=== PATIENT | male | born 1985 | race Hispanic/Latino ===

== ENCOUNTER 2018-04-16 10:33 | Emergency (ER) | payer OTHER ==
[2018-04-16] MEDS ORDERED: KETOROLAC 30 MG/ML INJ ONE (11:42)
[2018-04-16 11:56] LABS: Absolute Lymphocytes (CBC) 1.8 K/uL (0.7-4.9); Absolute Monocytes 0.4 K/uL (0.1-1.3); Absolute Neutrophil 2.9 K/uL (1.8-8.0); Basophils % 0.5 % (0-1.3); Eosinophils % 1.2 % (0-4.4); Hematocrit 45.4 % (39.6-49.0); Lymphocytes % 34.1 % (15.3-44.8); MPV 10.7 fL (7.6-11.3); Monocytes % 7.9 % (3.3-12.3); RBC Red Blood Cell Count 5.36 M/uL (4.33-5.43)
--- NOTE | 2018-04-16 12:07 | RAD REPORT ---
EXAM DESCRIPTION: RAD - Chest Pa And Lat (2 Views) - 04/16/2018 11:59 am CLINICAL HISTORY: CHEST PAIN Chest pain. COMPARISON: No comparisons FINDINGS: The lungs are clear. The heart is normal in size. No displaced fractures. Prominent kyphos is with bony fusion seen at the thoracolumbar junction.
[2018-04-16 12:15] LABS: BUN Blood Urea Nitrogen 12 mg/dL (7-18); Bicarbonate 29 mmol/L (21-32); Glucose Level 102 mg/dL (74-106); Potassium 3.9 mmol/L (3.5-5.1); Sodium Level 137 mmol/L (136-145); Troponin (Emerg Dept Use Only) < 0.02 ng/mL (0.0-0.045)
[2018-04-16] MEDS ORDERED: HYDROCODONE/APAP 5/325 MG TAB ONE (12:46)
--- NOTE | 2018-04-16 13:11 | RAD REPORT ---
EXAM DESCRIPTION: CTSpine Lumbar Wo Con04/16/2018 12:58 pm CLINICAL HISTORY: Back pain. Radiculopathy COMPARISON: None TECHNIQUE: Computed axial tomography lumbar spine was obtained with coronal and sagittal reconstruct ion. All CT scans are performed using dose optimization technique as appropriate and may include automated exposure control or mA/KV adjustment according to patient size. FINDINGS: No fracture is seen. No dislocation is noted. A significant bulging/disc herniation is not seen. Facet hypertrophy L4-5 and L5-S1 results in mild narrowing results in mild narrowing of the left neur al foramina IMPRESSION: Negative for a lumbar fracture. Significant spinal stenosis is not seen. If patient continues have symptoms to suggest spinal canal pathology MRI would be recommended
--- NOTE | 2018-04-16 13:16 | RAD REPORT ---
EXAM DESCRIPTION: CTThoracic Spine W/o Cont04/16/2018 12:59 pm CLINICAL HISTORY: Back pain. Radiculopathy COMPARISON: None TECHNIQUE: Computed axial tomography of thoracic spine was obtained with coronal and sagittal recons truction. All CT scans are performed using dose optimization technique as appropriate and may include automated exposure control or mA/KV adjustment according to patient size. FINDINGS: No fracture is seen. No dislocation is noted. Anterior fusion involves T9 through L1 with focal kyphosis. An obvious large disc bulge/herniation is not seen. 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
--- NOTE | 2018-04-16 13:51 | ER ---
Nurse's Notes [facility] Name: Ed Bal Age: 32 yrs Sex: Male : 1985 Arrival Date: 04/16/2018 Time: 10:44 Bed 17 Private MD: None, None Diagnosis: Kyphosis and lordosis;Fusion of spine, thoracolumbar region Presentation: 04/16 10:53 Presenting complaint: Patient states: "I woke up with chest pain this morning". Pt aa5 reports mid-sternal chest pain radiating to back. Pt denies SOB, denies N/V. Pt states "It hurts worse when I take a deep breath". Transition of care: patient was not received from another setting of care. Onset of symptoms was April 16, 2018. Risk Assessment: Do you want to hurt yourself or someone else? Patient reports no desire to harm self or others. Care prior to arrival: None. 10:53 Method Of Arrival: Ambulatory aa5 10:53 Acuity: RADHA 3 aa5 11:35 Initial Sepsis Screen: Does the patient meet any 2 criteria? No. Patient's initial hb sepsis screen is negative. Does the patient have a suspected source of infection? No. Patient's initial sepsis screen is negative. Historical: - Allergies: 10:54 No Known Allergies; aa5 - Home Meds: 10:54 None [Active]; aa5 - PMHx: 10:54 None; aa5 - PSHx: 10:54 None; aa5 - Immunization history:: Adult Immunizations up to date. - Social history:: Smoking status: Patient/guardian denies using tobacco. - Ebola Screening: : No symptoms or risks identified at this time. Screenin:35 Abuse screen: Denies threats or abuse. Denies injuries from another. Nutritional hb screening: No deficits noted. Tuberculosis screening: No symptoms or risk factors identified. Fall Risk None identified. Assessment: 11:35 General: Appears in no apparent distress. Behavior is calm, cooperative. Pain: hb Complains of pain in chest to back Pain currently is 7 out of 10 on a pain scale. Pain began suddenly, 3 hours ago. Neuro: Level of Consciousness is awake, alert, obeys commands, Oriented to person, place, time, situation. Cardiovascular: Capillary refill < 3 seconds Patient's skin is warm and dry. Respiratory: Airway is patent Respiratory effort is even, unlabored, Respiratory pattern is regular, symmetrical. GI: No signs and/or symptoms were reported involving the gastrointestinal system. : No signs and/or symptoms were reported regarding the genitourinary system. EENT: No signs and/or symptoms were reported regarding the EENT system. Derm: Skin is intact, is healthy with good turgor. Musculoskeletal: No signs and/or symptoms reported regarding the musculoskeletal system. 12:30 Reassessment: Patient appears in no apparent distress at this time. Patient and/or hb family updated on plan of care and expected duration. Pain level reassessed. Patient is alert, oriented x 3, equal unlabored respirations, skin warm/dry/pink. 13:30 Reassessment: Patient appears in no apparent distress at this time. Patient and/or hb family updated on plan of care and expected duration. Pain level reassessed. Patient is alert, oriented x 3, equal unlabored respirations, skin warm/dry/pink. Vital Signs: 10:54 BP 126 / 79; Pulse 52; Resp 16 S; Temp 97.4; Pulse Ox 100% on R/A; Weight 86.18 kg (R); aa5 Height 5 ft. 5 in. (165.10 cm) (R); Pain 7/10; 13:52 BP 106 / 68; Pulse 48; Resp 16; Pulse Ox 100% on R/A; Pain 2/10; hb 10:54 Body Mass Index 31.62 (86.18 kg, 165.10 cm) aa5 ED Course: 10:44 Patient arrived in ED. mr 10:44 None, None is Private Physician. mr 10:53 Arm band placed on. aa5 10:54 Triage completed. aa5 11:04 EKG done, by i&c tech. reviewed by Rich Bobby MD. at1 11:08 Rich Bboby MD is Attending Physician. gs 11:29 Rosanna Rodriguez, RN is Primary Nurse. hb 11:35 Patient has correct armband on for positive identification. Bed in low position. Call hb light in reach. Side rails up X 1. surveillance monitor on. Pulse ox on. NIBP on. 11:35 Patient maintains SpO2 saturation greater than 95% on room air. hb 11:40 Inserted saline lock: 20 gauge in right antecubital area, using aseptic technique. hb Blood collected. 11:56 X-ray completed. Patient tolerated procedure well. Patient moved back from radiology. 12:06 XRAY Chest Pa And Lat (2 Views) In Process Unspecified. EDMS 12:48 CT completed. Patient tolerated procedure well. Patient moved to CT via wheelchair. Patient moved back from CT. 12:59 CT Lumbar Spine Wo Con In Process Unspecified. EDMS 12:59 CT Thoracic Spine Wo Cont In Process Unspecified. EDMS 13:48 Cali Polanco MD is Referral Physician. gs 13:48 Tequila Mora DO is Referral Physician. gs 13:48 Jose Bernal MD is Referral Physician. gs 14:26 No provider procedures requiring assistance completed. IV discontinued, intact, hb bleeding controlled, No redness/swelling at site. Pressure dressing applied. Administered Medications: 11:40 Drug: TORadol 30 mg Route: IVP; Site: right antecubital; hb 12:23 Follow up: Response: No adverse reaction hb 12:37 Drug: Salol 5 mg-325 mg 1 tabs Route: PO; hb Outcome: 13:51 Discharge ordered by . gs 14:26 Discharged to home ambulatory. hb 14:26 Condition: stable 14:26 Discharge instructions given to patient, Instructed on discharge instructions, follow up and referral plans. medication usage, Demonstrated understanding of instructions, follow-up care, medications, Prescriptions given X 2. 14:27 Patient left the ED. hb Signatures: Dispatcher [employer] EDAK Rosibel Archer Susan Sydnee Rodriguez RN RN aa5 Marcela Tao, food service utility worker EKG Tat1 Emma Copeland Heather, RN RN hb Rich Bobby MD MD Corrections: (The following items were deleted from the chart) 11:02 10:54 Pulse 52bpm; Resp 16bpm; Spontaneous; Pulse Ox 100% RA; Temp 97.4F; 86.18 kg aa5 Reported; Height 5 ft. 5 in. Reported; BMI: 31.6; Pain 7/10; aa5
--- NOTE | 2018-04-16 13:51 | EDPHYS ---
Physician Documentation [facility] Name: Ed Bal Age: 32 yrs Sex: Male : 1985 Arrival Date: 04/16/2018 Time: 10:44 Bed 17 Private MD: None, None ED Physician Rich Bobby HPI: 04/16 15:51 This 32 yrs old Male presents to ER via Ambulatory with complaints of Chest gs Pain. 15:51 The patient or guardian reports chest pain that is located primarily in the anterior gs chest wall, bilaterally. The pain does not radiate. Associated signs and symptoms: Pertinent negatives: diaphoresis, shortness of breath. The chest pain is described as sharp. Duration: The patient or guardian reports multiple episodes, that are intermittent, that wax and wane, with no pattern. Modifying factors: The symptoms are alleviated by nothing. the symptoms are aggravated by movement. Severity of pain: At its worst the pain was moderate in the emergency department the pain is unchanged. The patient has not experienced similar symptoms in the past. had massage where someone stepped on back. Historical: - Allergies: 10:54 No Known Allergies; aa5 - Home Meds: 10:54 None [Active]; aa5 - PMHx: 10:54 None; aa5 - PSHx: 10:54 None; aa5 - Immunization history:: Adult Immunizations up to date. - Social history:: Smoking status: Patient/guardian denies using tobacco. - Ebola Screening: : No symptoms or risks identified at this time. ROS: 15:51 All other systems are negative. gs Exam: 15:51 Head/Face: Normocephalic, atraumatic. Eyes: Pupils equal round and reactive to light, gs extra-ocular motions intact. Lids and lashes normal. Conjunctiva and sclera are non-icteric and not injected. Cornea within normal limits. Periorbital areas with no swelling, redness, or edema. ENT: Nares patent. No nasal discharge, no septal abnormalities noted. Tympanic membranes are normal and external auditory canals are clear. Oropharynx with no redness, swelling, or masses, exudates, or evidence of obstruction, uvula midline. Mucous membranes moist. Neck: Trachea midline, no thyromegaly or masses palpated, and no cervical lymphadenopathy. Supple, full range of motion without nuchal rigidity, or vertebral point tenderness. No Meningismus. Chest/axilla: Normal chest wall appearance and motion. Nontender with no deformity. No lesions are appreciated. Cardiovascular: Regular rate and rhythm with a normal S1 and S2. No gallops, murmurs, or rubs. Normal PMI, no JVD. No pulse deficits. Respiratory: Lungs have equal breath sounds bilaterally, clear to auscultation and percussion. No rales, rhonchi or wheezes noted. No increased work of breathing, no retractions or nasal flaring. Abdomen/GI: Soft, non-tender, with normal bowel sounds. No distension or tympany. No guarding or rebound. No evidence of tenderness throughout. Back: No spinal tenderness. No costovertebral tenderness. Full range of motion. Skin: Warm, dry with normal turgor. Normal color with no rashes, no lesions, and no evidence of cellulitis. MS/ Extremity: Pulses equal, no cyanosis. Neurovascular intact. Full, normal range of motion. Neuro: Awake and alert, GCS 15, oriented to person, place, time, and situation. Cranial nerves II-XII grossly intact. Motor strength 5/5 in all extremities. Sensory grossly intact. Cerebellar exam normal. Normal gait. 15:51 Constitutional: The patient appears alert, awake. 15:51 ECG was reviewed by the Attending Physician. Vital Signs: 10:54 BP 126 / 79; Pulse 52; Resp 16 S; Temp 97.4; Pulse Ox 100% on R/A; Weight 86.18 kg (R); aa5 Height 5 ft. 5 in. (165.10 cm) (R); Pain 7/10; 13:52 BP 106 / 68; Pulse 48; Resp 16; Pulse Ox 100% on R/A; Pain 2/10; hb 10:54 Body Mass Index 31.62 (86.18 kg, 165.10 cm) aa5 MDM: 11:28 Patient medically screened. 15:51 Differential diagnosis: coronary artery disease chest wall pain, pleurisy, pneumonia. Data reviewed: vital signs, nurses notes, lab test result(s), EKG, radiologic studies. 04/16 11:28 Order name: Basic Metabolic Panel; Complete Time: 12:20 04/16 11:28 Order name: CBC with Diff 04/16 11:28 Order name: Troponin (emerg Dept Use Only); Complete Time: 12:20 04/16 11:28 Order name: XRAY Chest Pa And Lat (2 Views); Complete Time: 12:20 04/16 12:34 Order name: CT Lumbar Spine Wo Con; Complete Time: 13:39 gs 04/16 12:34 Order name: CT Thoracic Spine Wo Cont; Complete Time: 13:39 04/16 11:28 Order name: EKG; Complete Time: 11:28 04/16 11:28 Order name: Cardiac monitoring; Complete Time: 11:42 04/16 11:28 Order name: EKG - Nurse/Tech; Complete Time: 11:42 04/16 11:28 Order name: IV Saline Lock; Complete Time: :42 04/16 11:28 Order name: Labs collected and sent; Complete Time: :42 04/16 11:28 Order name: O2 Per Protocol; Complete Time: 11:42 04/16 11:28 Order name: O2 Sat Monitoring; Complete Time: 11:42 gs EC:51 Rate is 52 beats/min. Rhythm is regular. RI interval is normal. QRS interval is gs prolonged. No Q waves. T waves are Normal. Clinical impression: Abnormal EKG without significant change. Interpreted by me. Administered Medications: 11:40 Drug: TORadol 30 mg Route: IVP; Site: right antecubital; hb 12:23 Follow up: Response: No adverse reaction hb 12:37 Drug: [place] 5 mg-325 mg 1 tabs Route: PO; hb Disposition: 04/16/18 13:51 Discharged to Home. Impression: Kyphosis and lordosis, Fusion of spine, thoracolumbar region. - Condition is Stable. - Prescriptions for Prednisone 20 mg Oral Tablet - take 1 tablet by ORAL route once daily for 5 days; 5 tablet. Tylenol- Codeine #4 300-60 mg Oral Tablet - take 1 tablet by ORAL route every 6 hours As needed; 10 tablet. - Medication Reconciliation Form, Thank You Letter, Antibiotic Education, Prescription Opioid Use form. - Follow up: Cali Polanco MD; When: 2 - 3 days; Reason: Re-evaluation by your physician. Follow up: Tequila Mora DO; When: 2 - 3 days; Reason: Re-evaluation by your physician. Follow up: Jose Bernal MD; When: 2 - 3 days; Reason: Re-evaluation by your physician. - Problem is new. - Symptoms have improved. Signatures: Dispatcher [employer] EDSydnee Baeza, RN RN aa5 Rosanna Rodriguez, RN RN Rich Bobby MD MD gs Corrections: (The following items were deleted from the chart) 14:27 13:51 04/16/2018 13:51 Discharged to Home. Impression: Kyphosis and lordosis; Fusion of hb spine, thoracolumbar region. Condition is Stable. Forms are Medication Reconciliation Form, Thank You Letter, Antibiotic Education, Prescription Opioid Use. Follow up: Cali Polanco; When: 2 - 3 days; Reason: Re-evaluation by your physician. Follow up: Tequila Mora; When: 2 - 3 days; Reason: Re-evaluation by your physician. Follow up: Jose Bernal; When: 2 - 3 days; Reason: Re-evaluation by your physician. Problem is new. Symptoms have improved. gs
--- NOTE | 2018-04-16 17:25 | EKG ---
Test Date: 2018-04-16 Test Time: 10:53:47 Dental Technology Advisor: DANETTE MEASUREMENT RESULTS: Intervals: Rate: 52 AR: 142 QRSD: 112 QT: 432 QTc: 401 [place]: P: 55 AR: 142 QRS: 15 T: 29 INTERPRETIVE STATEMENTS: Sinus bradycardia with sinus arrhythmia Otherwise normal ECG No previous ECG available for comparison Electronically Signed On 04-16-18 17:24:11 NETWORK SECURITY ADMINISTRATOR by Jose Bernal
== END 2018-04-16 14:27 | disposition home or self-care (01) ==
LOC: ER 10:33
DX: M40.205 Unspecified kyphosis, thoracolumbar region (principal); M40.55 Lordosis, unspecified, thoracolumbar region; M43.25 Fusion of spine, thoracolumbar region
CPT/HCPCS: 36415; 71046; 72128; 72131; 80048; 84484; 85025; 93005